=== PATIENT | male | born 1940 | race Caucasian/White ===

== ENCOUNTER 2020-05-20 02:41 | Inpatient (IN) | payer MEDICARE, OTHER ==
[~2020-05-20] VITALS: Ht 177.8 cm; Wt 91.6 kg
[2020-05-20 06:28] LABS: RED BLOOD COUNT 2.32 M/UL (4.20-5.50); WHITE BLOOD COUNT 9.6 K/UL (4.5-11.0)
[2020-05-20 06:31] LABS: HEMOGLOBIN 6.5 gm/dl (14.0-17.5)
[2020-05-20] MEDS ORDERED: LEVOTHYROXINE100 MC2 PO (12:16)
[2020-05-20] MEDS ORDERED: ASPIRIN81 MG PO (12:17)
[2020-05-20] MEDS ORDERED: CLOPIDOGREL75 MG PO (12:17)
[2020-05-20] MEDS ORDERED: TRIAMTERENE-HC1 EAC1 PO (12:19)
[2020-05-20] MEDS ORDERED: GABAPENTIN300 MG PO (12:20)
[2020-05-20] MEDS ORDERED: TERAZOSIN HCL2 MG PO (12:21)
[2020-05-20] MEDS ORDERED: PROCARDIA XL60 MG PO (12:22)
[2020-05-20] MEDS ORDERED: JANTOVEN3 MG PO (12:23)
[2020-05-20] MEDS ORDERED: JANTOVEN1 MG PO (12:24)
[2020-05-20] MEDS ORDERED: DEMADEX 10 MG T10 MG PO (12:25)
[2020-05-20] MEDS ORDERED: CRESTOR20 MG PO (12:25)
[2020-05-20] MEDS ORDERED: ISOSORBIDE MON120 MG PO (12:27)
[2020-05-20] MEDS ORDERED: VITAMIN D325 MC6 PO (12:28)
[2020-05-20] MEDS ORDERED: VITAMIN B-125000 MC2 PO (12:30)
[2020-05-20 15:58] LABS: HEMOGLOBIN 7.3 gm/dl (14.0-17.5)
[2020-05-20 23:56] LABS: HEMOGLOBIN 8.7 gm/dl (14.0-17.5)
[2020-05-21 08:24] LABS: HEMOGLOBIN 9.8 gm/dl (14.0-17.5); WHITE BLOOD COUNT 7.6 K/UL (4.5-11.0)
[2020-05-21 08:25] LABS: RED BLOOD COUNT 3.38 M/UL (4.20-5.50)
[2020-05-22 04:09] LABS: HEMOGLOBIN 9.5 gm/dl (14.0-17.5); RED BLOOD COUNT 3.35 M/UL (4.20-5.50); WHITE BLOOD COUNT 8.3 K/UL (4.5-11.0)
[2020-05-23 01:33] LABS: HEMOGLOBIN 9.8 gm/dl (14.0-17.5); RED BLOOD COUNT 3.41 M/UL (4.20-5.50); WHITE BLOOD COUNT 7.6 K/UL (4.5-11.0)
== END 2020-05-23 15:47 | disposition home or self-care (01) | DRG 811 ==
LOC: PROG CARE 03:59
PROVIDERS: Internal Medicine; ADMIT Internal Medicine
PROC: 30233H1 Transfusion of Nonautologous Whole Blood into Peripheral Vein, Percutaneous Approach (ICD-10-PCS; principal; 2020-05-20)
DX: D62 Acute posthemorrhagic anemia (principal); I21.A1 Myocardial infarction type 2; N17.9 Acute kidney failure, unspecified; E87.1 Hypo-osmolality and hyponatremia; I48.92 Unspecified atrial flutter; I25.10 Atherosclerotic heart disease of native coronary artery without angina pectoris; Z20.828 Contact with and (suspected) exposure to other viral communicable diseases; D50.0 Iron deficiency anemia secondary to blood loss (chronic); N18.9 Chronic kidney disease, unspecified; E86.1 Hypovolemia; M50.30 Other cervical disc degeneration, unspecified cervical region; I48.91 Unspecified atrial fibrillation; G47.30 Sleep apnea, unspecified; Z88.2 Allergy status to sulfonamides; Z79.4 Long term (current) use of insulin; Z79.899 Other long term (current) drug therapy; Z79.01 Long term (current) use of anticoagulants; I44.1 Atrioventricular block, second degree; E78.5 Hyperlipidemia, unspecified; E11.42 Type 2 diabetes mellitus with diabetic polyneuropathy; R26.9 Unspecified abnormalities of gait and mobility; Z87.891 Personal history of nicotine dependence; R06.00 Dyspnea, unspecified; I48.0 Paroxysmal atrial fibrillation; E03.9 Hypothyroidism, unspecified; R01.1 Cardiac murmur, unspecified; D63.8 Anemia in other chronic diseases classified elsewhere; R00.1 Bradycardia, unspecified
CPT/HCPCS: 36415; 36430; 70450; 80048; 80053; 81001; 82550; 82553; 82728; 83540; 83550; 83735; 84484; 85014; 85018; 85025; 85610; 85652; 85730; 86850; 86900; 86901; 86920; 93005; 97162; C9113; J7050; P9016